=== PATIENT | female | born 1990 | race Caucasian/White ===

== ENCOUNTER 2017-07-15 14:53 | Emergency (ER) | payer MEDICAID ==
[~2017-07-15] VITALS: Ht 165.1 cm; Wt 74.8 kg
[~2017-07-15 14:53] MED LIST: ULTRAM 50MG TAB50 MG PO; ZPAK PO
[2017-07-15 15:17] LABS: URINE BILIRUBIN NEGATIVE (Negative); URINE BLOOD NEGATIVE (Negative); URINE CLARITY CLEAR; URINE COLOR YELLOW; URINE GLUCOSE-RANDOM NEGATIVE (Negative); URINE KETONES 3+ (Negative); URINE LEUKOCYTES-REFLEX NEGATIVE (Negative); URINE NITRITE-REFLEX NEGATIVE (Negative); URINE PROTEIN TRACE (Negative); URINE SPECIFIC GRAVITY >= 1.030 (1.005-1.030); URINE UROBILINOGEN 0.2 E.U./dl (0.2-1.0)
[2017-07-15 16:23] VITALS: BP 150/82
== END 2017-07-15 16:24 | disposition home or self-care (01) ==
LOC: M.ERS 14:53
PROVIDERS: Nurse Practitioner Family
DX: O21.9 Vomiting of pregnancy, unspecified (principal); F17.210 Nicotine dependence, cigarettes, uncomplicated; Z3A.01 Less than 8 weeks gestation of pregnancy; Z88.6 Allergy status to analgesic agent

== ENCOUNTER 2019-05-16 16:12 | Emergency (ER) | payer OTHER ==
[~2019-05-16] VITALS: Ht 162.6 cm; Wt 77.1 kg
[2019-05-16] MEDS ORDERED: TYLENOL WITH CO1 TA1 PO (17:25)
[2019-05-16] MEDS ORDERED: KEFLEX500 M1 PO (17:25)
[2019-05-16] MEDS ORDERED: CIPROFLOXIN HC2.5 M1 OPHTHALMIC (17:25)
[2019-05-16 17:31] LABS: INFLUENZA A ANTIGEN Negative (Negative); INFLUENZA B ANTIGEN Negative (Negative)
[2019-05-16 17:48] VITALS: BP 113/71
== END 2019-05-16 17:50 | disposition home or self-care (01) ==
LOC: M.ERS 16:12
PROVIDERS: Physician Assistant
DX: J02.9 Acute pharyngitis, unspecified (principal); H10.9 Unspecified conjunctivitis; Z88.6 Allergy status to analgesic agent